=== PATIENT | male | born 1985 | race Caucasian/White ===

== ENCOUNTER 2019-06-18 07:05 | Emergency (ER) | payer BC, OTHER ==
[2019-06-18 07:29] VITALS: TEMP 97.2
[2019-06-18] MEDS ORDERED: LEVETIRACETAM (PREMIX) 1 GM 1 GM/100 ML SOL IV ONE ×2 (07:56→07:58)
[2019-06-18] MEDS ORDERED: LORAZEPAM 2 MG/ML SOL IV ONE (07:56)
[2019-06-18] MEDS ORDERED: LORAZEPAM 2 MG/ML SOL ONE (07:57)
[2019-06-18 08:01] LABS: BASOPHILS % (AUTO) 1 % (0-3); EOSINOPHILS % (AUTO) 4 % (0-9); HEMATOCRIT 47 % (39-53); HEMOGLOBIN 15.2 gm/dl (13.5-17.7); LYMPHOCYTES % (AUTO) 39.2 % (10-50); MEAN CORPUSCULAR HEMOGLOBIN 29.9 pg (27.0-32.0); MEAN CORPUSCULAR HGB CONC 32.6 gm/dl (32.0-36.0); MEAN CORPUSCULAR VOLUME 92 fL (80-100); MONOCYTES % (AUTO) 9.2 % (0-12); NEUTROPHILS % (AUTO) 46.1 % (37-80)
[2019-06-18 08:11] LABS: ALBUMIN 3.8 gm/dl (3.4-5.0); ALKALINE PHOSPHATASE 102 IU/L (46-116); ALT 27 IU/L (14-63); AST 17 IU/L (15-37); BILIRUBIN,TOTAL 0.3 mg/dl (0.2-1.0); BLOOD UREA NITROGEN 17 mg/dl (7-18); CALCIUM 8.5 mg/dl (8.5-10.1); CHLORIDE 108 mMol/L (98-107); CREATININE 0.91 mg/dl (0.80-1.30); GLUCOSE 126 mg/dl (74-106)
[2019-06-18 08:12] LABS: ALCOHOL < 0.003 gm/dl (0.000-0.08)
[2019-06-18 09:04] VITALS: RESP 18
[2019-06-18 09:21] LABS: APPEARANCE,URINE Clear; BILIRUBIN,URINE NEGATIVE (NEGATIVE); COLOR,URINE Yellow; GLUCOSE, URINE (UA) NEGATIVE (NEGATIVE); KETONES,URINE NEGATIVE (NEGATIVE); LEUKOCYTE ESTERASE ,URINE NEGATIVE (NEGATIVE); NITRATE,URINE NEGATIVE (NEGATIVE); OCCULT BLOOD,URINE NEGATIVE (NEG-TRACE); UROBILINOGEN,URINE 0.2 (0.2-1.0 EU)
[2019-06-18 09:34] LABS: AMPHETAMINES NEGATIVE (NEGATIVE); BACTERIA TRACE (< 1+); BARBITUATES NEGATIVE (NEGATIVE); BENZODIAZEPINES NEGATIVE (NEGATIVE); CANNABINOL(THC) NEGATIVE (NEGATIVE); COCAINE(COC) NEGATIVE (NEGATIVE); CRYSTALS NEGATIVE (0-3 AVE/HPF); EPITHELIAL CELLS 0-1 (SQUAMOUS); METHAMPHETAMINES NEGATIVE (NEGATIVE); OPIATES(OPI) NEGATIVE (NEGATIVE); OXYCODONE(OXY) NEGATIVE (NEGATIVE); PROPOXYPHENE(PPX) NEGATIVE (NEGATIVE); RBC,URINE NEGATIVE (0-3AV/HPF); WBC,URINE 0-2 (0-5AV/HPF)
[2019-06-18 13:21] VITALS: O2SAT 98
[2019-06-18 13:24] VITALS: BP 129/75; PULSE 68
== END 2019-06-18 13:12 | disposition home or self-care (01) ==
LOC: ED 07:05
DX: G40.802 Other epilepsy, not intractable, without status epilepticus (principal)
CPT/HCPCS: 70553; 80053; 80305; 80307; 81001; 83735; 85025; 93005; 96365; 96374; 99284; 99285; J2060; A9585; J1953